=== PATIENT | female | born 1980 | race Caucasian/White ===

== ENCOUNTER 2020-04-08 03:00 | Emergency (ER) | payer BC ==
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
== END 2020-04-08 04:20 | disposition home or self-care (01) ==
LOC: KA.ED 03:00
DX: F10.129 Alcohol abuse with intoxication, unspecified (principal)
CPT/HCPCS: 99283; 99284